=== PATIENT | female | born 1935 | race Caucasian/White ===

== ENCOUNTER → 2022-06-05 | Outpatient (CLI) | payer MEDICARE ==
[~2022-06-05] MED LIST: 00186-0370-20 IH; ASPIRIN 81M81 MG/TA2 PO; CADUET 5 MG-101 TAB PO; COUMADIN 1MG1 MG/TAB PO; COUMADIN 3MG3 MG/TAB PO; GLUCOPHAGE500 MG/TAB PO; HCTZ 25MG TAB25 MG PO; LOPRESSOR100 MG PO; LOVENOX 3030 MG/0.3 SQ; NICOTINIC ACID PO; PAXIL40 MG PO; PRILOSEC 20MG20 MG PO; PRINIVIL40 MG PO; PROVENTIL0.09 MG/A1 IH; SINGULAIR 110 MG/TAB PO; ZOCOR 20MG20 MG PO
== END ==
LOC: ZCOL.LAB 16:38
DX: R30.9 Painful micturition, unspecified (principal)